=== PATIENT | female | born 2000 | race Caucasian/White ===

== ENCOUNTER 2021-01-21 15:30 | Emergency (ER) | payer BC ==
[~2021-01-21] VITALS: Ht 160 cm; Wt 61.3 kg
--- OUTSIDE RECORDS SUMMARY | 2021-01-21 15:36 | XMS REPORT | Clinical Summary ---
Author Author [facility] Organization [facility] Address Unknown Phone Unavailable Care Team Providers Care Centrifugal Station Operator Name Role Phone XavierLaura DO PCP Source Comments Some departments are not documenting in the electronic medical record. If you d o not see the information that you expected, contact Release of Information in [facility] [employer] Information Management department at [phone] for further assistan ce in locating additional records.[facility] Allergies No Known Active Allergies Medications No known medications Active Problems Problem Noted Date Lateral dislocation of left patella 03/07/2017 Social History Date Tobacco Use Types Packs/Day Years Used Never Smoker Smokeless Tobacco: Never Used Comments Alcohol Use Standard Drinks/Week No 0 (1 standard drink = 0.6 o z pure alcohol) Sex Assigned at Date Recorded Not on file Last Filed Vital Signs Reading Time Taken Comments Vital Sign 112/62 03/07/2017 8:32 AM CDT Blood Pressure 75 03/07/2017 8:32 AM CDT Pulse - - Temperature - - Respiratory Rate - - Oxygen Saturation - - Inhaled Oxygen Concentration 61.2 kg (135 lb) 03/07/2017 8:32 AM CDT Weight 160 cm (5' 3") 03/07/2017 8:32 AM CDT Height 23.91 03/07/2017 8:32 AM CDT Body Mass Index Plan of Treatment Health Maintenance Due Date Last Done Comments CHLAMYDIA SCREENING 18-24 1999 YEARS HIV SCREENING 2014 HPV VACCINES (2 - 3-dose 12/06/2014 11/08/2014 series) DTAP/TDAP VACCINES (1 - 2017 Tdap) HEPATITIS C SCREENING 2017 PHYSICAL (COMPREHENSIVE) 2017 EXAM CERVICAL CANCER SCREENING 2020 INFLUENZA VACCINE 02/24/2021 MENINGOCOCCAL VACCINE Aged Out No longer eligib le based on patient's age to (Chelsey DONNELLY) complete this topic Results Not on filefrom Last 3 Months Insurance Type Payer Benefit Subscriber ID Effective Phone Address Plan / Dates Group PPO BCBS [facility] [id number] 2016-P [facility] resent BLUE Advance Directives Patient Transplant Worker Explanation Type Date Recorded Advance Directive/DPOA Perceptive Content Scan Advance 03/14/2017 11:37 AM Directive/DPOA
--- OUTSIDE RECORDS SUMMARY | 2021-01-21 15:37 | XMS REPORT | Clinical Summary ---
Author Author [facility] Organization [facility] Address Unknown Phone Unavailable Care Team Providers Care Provider Network Mgr Name Role Phone No, Pcp TRACTOR CRANE OPERATOR PP Unavailable Allergies No known active allergies Medications End Date Status Medication Sig Dispensed Refills Start Date Active ALBUTEROL SULFATE INHL Inhale. 0 Active Problems Not on file Social History Date Tobacco Use Types Packs/Day Years Used Never Smoker Sex Assigned at Date Recorded Not on file Last Filed Vital Signs Reading Time Taken Comments Vital Sign 116/80 06/23/2017 2:17 PM STORAGE MANAGEMENT CONSULTANT Blood Pressure 88 06/23/2017 2:17 PM STORAGE MANAGEMENT CONSULTANT Pulse 38.9 C (102.1 F) 06/23/2017 2:17 PM STORAGE MANAGEMENT CONSULTANT Temperature 16 06/23/2017 2:17 PM STORAGE MANAGEMENT CONSULTANT Respiratory Rate 99% 06/23/2017 2:17 PM STORAGE MANAGEMENT CONSULTANT Oxygen Saturation - - Inhaled Oxygen Concentration 61.2 kg (135 lb) 06/23/2017 2:17 PM STORAGE MANAGEMENT CONSULTANT Weight - - Height - - Body Mass Index Plan of Treatment Health Maintenance Due Date Last Done Comments Cervical Cancer: 2020 Screening Results Not on filefrom Last 3 Months Insurance Type Payer Benefit Subscriber ID Effective Phone Address Plan / Dates Group [place]BS [place]BS [id number] [id number] [place] resent [phone] Care Teams Start Date End Date Provider Network Mgr Relationship Specialty 11/11/15 No, Pcp, TRACTOR CRANE OPERATOR PCP - General N/A Do not use
[2021-01-21] MEDS ORDERED: TETANUS,DIPTH,PERTUSS P/F (BOOSTRIX) 0.5 ML VIAL IM ONE (15:45)
[2021-01-21] MEDS ORDERED: LIDOCAINE 1% INJ 20 ML 20 ML VIAL INJ ONE (15:45)
--- NOTE | 2021-01-21 15:54 | ED Lower Extremity ---
General Chief Complaint: Laceration Stated Complaint: L KNEE LAC History of Present Illness Date Seen by Provider: Jan 21, 2021 Time Seen by Provider: 15:40 Initial Comments 20-year-old female presents with a laceration to her left medial knee. She states that she was going down a slip and slide when she felt a cut to her left knee. She did not see any sharp objects underneath the slip inside. She had immediate onset of bleeding. She reports her last tetanus shot was greater than 5 years ago. She denies any other injuries at the time. Onset: just prior to arrival Pain/Injury Location: left knee Method of Injury: incised Allergies and Home Medications Allergies Coded Allergies: No Known Drug Allergies (Unverified , 01/21/21) Home Medications Cephalexin 500 Mg Tablet, 500 MG PO TID Prescribed by: ARLET OSORIO on 01/21/21 1632 Patient Home Medication List Home Medication List Reviewed: Yes Review of Systems Constitutional: no symptoms reported, see HPI Musculoskeletal: other (left knee laceration) All Other Systems Reviewed Negative Unless Noted: Yes Past Ehzyfjl-Cuufxv-Daayog Hx Family Medical History Reviewed Nursing Family Hx Physical Exam Vital Signs Vital Signs - First Documented 01/21/21 15:35 Temp 37.1 Pulse 114 Resp 18 B/P (MAP) 128/76 (93) Pulse Ox 100 Capillary Refill : Height, Weight, BMI Height: '" Weight: lbs. oz. kg; BMI Method: General Appearance: WD/WN, no apparent distress Procedures/Interventions Wound Location: Lower Extremities (Left knee) Wound Length (cm): 4.5 Wound's Depth, Shape: superficial Irrigated w/ Saline (ccs): 500 Betadine Prep?: Yes Anesthesia: 1% Lidocaine Volume Anesthetic (ccs): 8 Suture Size: 4-0 Number of Sutures: 6 Sterile Dressing Applied?: Yes Progress Patient tolerated procedure well, sterile bulky dressing applied. Wound well ap proximated. Progress/Results/Core Measures Results/Orders Lab Results Laboratory Tests Test 01/21/21 16:58 Range/Units Glucometer 223 H 70-110 MG/DL My Orders Orders - ARLET OSORIO Dipht,Pertuss(Acell),Tet Adult (Boostrix (01/21/21 15:45) Lidocaine 1% Inj 20 Ml (Xylocaine 1% Inj (01/21/21 15:45) Medications Given in ED Current Medications Medications Dose Ordered Sig/Veronika Route Start Time Stop Time Status Last Admin Dose Admin Diphtheria/ Tetanus/Acell Pertussis 0.5 ml ONCE ONCE IM 01/21/21 15:45 01/21/21 15:46 DC 01/21/21 15:57 0.5 ML Lidocaine HCl 20 ml ONCE ONCE INJ 01/21/21 15:45 01/21/21 15:46 DC 01/21/21 16:43 20 ML Vital Signs/I&O 01/21/21 01/21/21 15:35 16:33 Temp 37.1 37.1 Pulse 114 114 Resp 18 18 B/P (MAP) 128/76 (93) 128/76 (93) Pulse Ox 100 100 Departure Impression Primary Impression: Laceration of left knee Qualified Codes: S81.012A - Laceration without foreign body, left knee, initial encounter Disposition: HOME, SELF-CARE Condition: Improved Departure-Patient Inst. Decision time for Depature: 16:15 Referrals: NO,LOCAL PHYSICIAN (PCP) Primary Care Physician LEONORA SANTA MD Patient Instructions: Laceration Repair With Stitches (DC) Add. Discharge Instructions: Keep wound clean and dry for the next 24 hours. Then you may shower as normal. Do not Submerge the wound in standing water: bathtub, hot tub, pool, etc. Clean the wound with peroxide after bathing. Apply dressings as needed. Activity as tolerated right knee. Return to the emergency department or [facility] in approximately 12 days for suture removal. Watch for signs of infection: Redness, fever, discolored or foul-smelling drainage. You may take Tylenol 650 mg alternating with ibuprofen 600 mg every 4 hours for pain. Take antibiotics as prescribed. Return to the emergency department for new, urgent healthcare needs. All discharge instructions reviewed with patient and/or family. Voiced understanding. Scripts Cephalexin (Cephalexin) 500 Mg Tablet 500 MG PO TID, #15 TAB 0 Refills Prov: ARLET OSORIO 01/21/21 Copy Copies To 1: LEONORA SANTA MD, AMY ARNP Jan 21, 2021 15:54
[2021-01-21] MEDS ORDERED: CEPH500T PO (16:32)
[2021-01-21 16:33] VITALS: BP 128/76
== END 2021-01-21 16:33 | disposition home or self-care (01) ==
LOC: EDUNIT# 15:30 → ER 15:32
DX: S81.012A Laceration without foreign body, left knee, initial encounter (principal); Z23 Encounter for immunization; W26.8XXA Contact with other sharp object(s), not elsewhere classified, initial encounter
CPT/HCPCS: 12002; 82947; 90715